=== PATIENT | female | born 1965 | race Caucasian/White ===

== ENCOUNTER 2023-09-21 22:52 | Emergency (ER) | payer OTHER, SELFPAY ==
--- NOTE | ~2023-09-21 | CT_ITS ---
EXAMINATION: CT brain wo con DATE: 09/22/2023 01:36 INDICATION: Dizziness TECHNIQUE: Computed tomography (CT) of the head was performed without intravenous contrast. The mA wa s adjusted according to patient size. Iterative reconstruction technique was employed. Exam dose: 60 5.33 mGy-cm total exam DLP. COMPARISON: None FINDINGS: No intracranial mass lesion or hemorrhage, midline shift or mass effect or cerebrovascular accident. Normal ventricular size. No subdural or epidural hematoma. No skull fracture or bone destruction. The included paranasal sinuses and mastoid air cells are unrem arkable. IMPRESSION: No significant abnormality Reviewed, dictated and finalized at [facility] Reviewed, dictated and finalized at [facility] THINNER IMPRESSION: No significant abnormality
[2023-09-21 22:56] VITALS: BP 154/99; PULSE 123; RESP 18; TEMP 36.8; O2SAT 98
[2023-09-22] MEDS: SODIUM CHLORIDE 0.9% IV 1,000 ML 999 ML IV CONT (00:58)
[2023-09-22 01:01] LABS: Basophils Absolute Auto 0.1 K/mm3 (0.0-0.1); Basophils Percent Auto 0.5 % (0.2-1.2); Eosinophils Absolute Auto 0.1 K/mm3 (0-0.3); Eosinophils Percent Auto 1.5 % (0-4.4); Hematocrit 38.2 % (37.0-47.0); Hemoglobin 12.5 g/dL (12.0-15.0); Immature Granulocyte Absolute 0.05 K/mm3 (0.00-0.031); Immature Granulocyte Percent A 0.5 % (0-0.5); Lymphocytes Absolute Auto 1.93 K/mm3 (0.9-3.2); Mean Corpuscular HGB Conc 32.7 g/dl (32-36); Mean Corpuscular Hemoglobin 31.6 pg (26-34); Mean Corpuscular Volume 96.7 fl (80-100); Mean Platelet Volume 9.4 fl (7.4-10.4); Monocytes Absolute Auto 0.5 K/mm3 (0.1-0.6); Monocytes Percent Auto 5.4 % (2.6-8.5); Neutrophils Absolute Auto 6.9 K/mm3 (1.3-6.7); Neutrophils Percent Auto 72.1 % (45.5-73.1); Platelet Count Result 259 k/mm3 (150-375); Red Blood Count 3.95 M/mm3 (4.2-5.4); Red Cell Distribution Width 12.1 % (11.5-14.5); White Blood Count 9.6 K/mm3 (4.5-10.0)
--- NOTE | 2023-09-22 01:03 | ECG_ITS ---
Measurements Intervals [place] Rate: 80 P: 56 AL: 137 QRS: 74 QRSD: 81 T: -14 QT: 367 QTc: 424 Interpretive Statements SINUS RHYTHM LOW QRS VOLTAGE IN PRECORDIAL LEADS NONSPECIFIC ST & T-WAVE ABNORMALITY- ANTEROLAT/INF LEADS BASELINE ARTIFACT- V3-V5 BORDERLINE ECG NO PREVIOUS ECG AVAILABLE FOR COMPARISON Electronically Signed On 09-22-2023 8:07:41 UNIT SUPERVISOR by Aditya Estes D.O.
--- NOTE | 2023-09-22 01:11 | ED.NAVMDI ---
HPI - Nausea/Vomiting/Diarrhea General Chief complaint: Nausea/Vomiting/Diarrhea Stated complaint: vertigo, n/v Time Seen by Provider: 09/22/23 00:33 Source: patient Mode of arrival: ambulatory Limitations: no limitations History of Present Illness HPI Narrative: This is a 58 year old female that presents to the ER for vertigo. Reports room spinning dizziness. Associated with nausea and vomiting. Reports a similar episodes several months ago. She has not taken anything for her symptoms. Denies fever, cough, congestion, sore throat, abdominal tovar, diarrhea. Related Data Home Medications Medication Instructions Recorded Confirmed cholecalciferol (vitamin D3) 50 50 mcg PO DAILY 03/16/21 04/14/21 mcg (2,000 unit) capsule Allergies Allergy/AdvReac Type Severity Reaction Status Date / Time Penicillins Allergy Unknown hives Verified 09/21/23 22:53 shrimp Allergy Unknown hives Verified 09/21/23 22:53 Sulfa (Sulfonamide AdvReac Hives Verified 09/21/23 23:00 Antibiotics) Review of Systems Review of Systems: CONSTITUTIONAL: Denies fever EYES: Denies visual changes ENT: Denies rhinorrhea, congestion, sore throat CARDIOVASCULAR: Denies chest pain RESPIRATORY: Denies dyspnea. GASTROINTESTINAL: Reports nausea and vomiting. Denies abdominal pain, or diarrhea. GENITOURINARY: Denies dysuria NEUROLOGIC: Denies headache, numbness, or weakness. All systems reviewed & are unremarkable except as noted in HPI and below PMFSH Past Medical History Medical History (Updated 09/22/23 @ 04:37 by Alyson Goodson PA-C) Breast cancer Hypothyroidism, unspecified Family History Family History Father Family history of cardiovascular disease Mother Depression Grandparent Carcinoma of colon Other No family history of hypertension No family history of malignant neoplasm Social History Social History Smoking status: Never smoker Alcohol intake: current Exam Narrative: GENERAL: Ill-appearing, well-nourished, and in no acute distress. HEAD: Normocephalic, atraumatic. EYES: PERRLA and EOMI. ENT: Nares clear, no rhinorrhea or epistaxis. Mucous membranes moist. Oropharynx without tonsillar hypertrophy exudate or other lesions. Bilateral TMs pearly weathers non-bulging NECK: Supple. No adenopathy or masses. No JVD CHEST: Clear to auscultation. No respiratory distress. No wheezes rales or rhonchi HEART: Regular rate and rhythm. No murmur heard. Normal peripheral pulses. ABDOMEN: Soft, nontender, nondistended, normal active bowel sounds. EXTREMITIES: Normal range of motion. No edema. Strength equal in bilateral upper and lower extremities (5/5) SKIN: Warm, dry, no rash. NEURO: No focal deficits. Alert and oriented x3. Cranial nerves 2-12 grossly intact PSYCH: Normal mood and affect Course Course Emergency Course: Patient and family updated on workup. She reports feeling much better after meclizine, fluids and Zofran Vital Signs Vital signs: Vital Signs Temperature 98.2 F 09/21/23 22:56 Pulse Rate 123 H 09/21/23 22:56 Respiratory Rate 18 09/21/23 22:56 Blood Pressure 154/99 H 09/21/23 22:56 Pulse Oximetry 98 09/21/23 22:56 Oxygen Delivery Room Air 09/21/23 22:56 Temperature 98.2 F 09/21/23 22:56 Pulse Rate 96 09/22/23 05:25 Respiratory Rate 15 09/22/23 05:25 Blood Pressure 140/92 H 09/22/23 05:25 Pulse Oximetry 99 09/22/23 05:25 Oxygen Delivery Room Air 09/21/23 22:56 MDM - Nausea/Vomiting/Diarrhea MDM Narrative Medical decision making narrative: Patient presents to the emergency department for dizziness, nausea and vomiting. She is afebrile and nontoxic appearing. Tachycardic upon arrival, this normalized with IV fluid administration. She is neurologically intact. CBC metabolic panel without concerning findings. UA is consistent with infection
[2023-09-22] MEDS: MECLIZINE HCL 25 MG TABLET PO (01:21)
[2023-09-22] MEDS: ONDANSETRON INJ 4 MG/2 ML VIAL IV PUSH (01:21)
[2023-09-22 01:37] LABS: Influenza A QL RT-PCR Negative (Negative); Influenza B QL RT-PCR Negative (Negative); RSV RNA, RT-PCR Negative (Negative); SARS-CoV-2 RNA PCR Negative (Negative)
[2023-09-22 01:42] LABS: Alanine Aminotransferase 11 U/L (6-35); Albumin Level 3.7 g/dL (3.5-5.1); Alkaline Phosphatase 57 U/L (38-126); Anion Gap 5 mmol/L (8-16); Aspartate Amino Transferase 17 U/L (14-36); Bilirubin,Total 0.3 mg/dL (0.2-1.3); Blood Urea Nitrogen 14 mg/dL (7-17); Calcium 7.6 mg/dL (8.4-10.2); Carbon Dioxide 22 mmol/L (22-30); Chloride 113 mmol/L (98-107); Estimated CRCL calculation 77 ml/min; Estimated Glomerular Filt Rate > 60; Glucose 125 mg/dL (65-110); Lipase 54 U/L (23-300); Potassium 3.4 mmol/L (3.4-5.0); Sodium 140 mmol/L (137-145)
[2023-09-22 02:12] LABS: Magnesium 1.6 mg/dL (1.6-2.3)
[2023-09-22] MEDS: MAGNESIUM SULF 1 GM/D5W 100 ML 1 GM/100 ML BAG IVPB (03:40)
[2023-09-22 04:30] LABS: Appearance Urine Cloudy (Clear); Bacteria Urine None Seen /hpf; Bilirubin Urine Negative (Negative); Blood Urine 2+ (Negative); Color Urine Yellow (Yellow); Glucose Urine UA Negative (Negative); Ketones Urine Negative (Negative); Leukocyte Esterase Ur 3+ LEU/UL (Negative); Nitrate Urine Negative (Negative); Non Pathogenic Casts 0-2; Protein Urine 1+ mg/dL (Negative); Specific Grav Ur 1.016 (1.001-1.035); Squamous Epithelial Cell Urine Occasional /hpf (Few); WBC Urine >100 /hpf
[2023-09-22 04:36] LABS: Add Urine Microscopic? YES
[2023-09-22 04:58] LABS: Free T4 Free Thyroxine Reflex 1.13 ng/dL (0.78-2.19)
[2023-09-22 05:25] VITALS: BP 140/92; PULSE 96; RESP 15; O2SAT 99
[2023-09-22 05:37] LABS: Total Triiodothyronine (T3) 0.85 NG/ML (0.97-1.69)
== END 2023-09-22 05:26 | disposition home or self-care (01) ==
PROVIDERS: Emergency Medicine; Emergency Provider Physician Assistant
DX: N39.0 Urinary tract infection, site not specified (principal); Z20.822 Contact with and (suspected) exposure to COVID-19; E03.9 Hypothyroidism, unspecified; Z85.3 Personal history of malignant neoplasm of breast; E83.42 Hypomagnesemia; E83.51 Hypocalcemia; R94.31 Abnormal electrocardiogram [ECG] [EKG]
CPT/HCPCS: 36415; 70450; 80053; 81001; 83690; 83735; 84439; 84443; 84480; 85025; 87077; 87086; 87088; 87637; 93005; 96361; 96365; 96375; 99284; A9270; J2405; J3475; J7030